=== PATIENT | female | born 1975 | race Caucasian/White ===

== ENCOUNTER 2019-08-16 23:27 | Outpatient (REF) | payer MEDICAID, SELFPAY ==
[2019-08-16 22:20] LABS: Anion Gap 8.4 mmol/L (3-11); BUN 21 mg/dL (7-18); CO2 29.6 mmol/L (21.0-32.0); CREATININE 1.04 mg/dL (0.55-1.02); Calcium 8.8 mg/dL (8.5-10.1); Chloride 101 mmol/L (98-107); Estimated GFR 57.57 (mL/min/1.73m2); Glucose 76 mg/dL (70-100); Sodium 139 mmol/L (136-145)
== END 2019-08-16 23:47 ==
LOC: NCHCN 23:27
PROVIDERS: PCP Nurse Practitioner Family; Visit Provider Nurse Practitioner Family
DX: I34.0 Nonrheumatic mitral (valve) insufficiency (principal); I50.21 Acute systolic (congestive) heart failure; R94.5 Abnormal results of liver function studies; J39.8 Other specified diseases of upper respiratory tract
CPT/HCPCS: 80048

== ENCOUNTER 2019-09-13 14:00 | Outpatient (REF) | payer MEDICAID, SELFPAY ==
[2019-09-13 22:40] LABS: Anion Gap 10.2 mmol/L (3-11); BUN 21 mg/dL (7-18); CO2 28.8 mmol/L (21.0-32.0); CREATININE 0.89 mg/dL (0.55-1.02); Calcium 8.9 mg/dL (8.5-10.1); Chloride 101 mmol/L (98-107); Glucose 96 mg/dL (70-100); Sodium 140 mmol/L (136-145)
== END 2019-09-13 14:20 ==
LOC: NCHCN 14:00
PROVIDERS: PCP Nurse Practitioner Family; Visit Provider Nurse Practitioner Family
DX: I44.7 Left bundle-branch block, unspecified (principal); R94.5 Abnormal results of liver function studies
CPT/HCPCS: 80048

== ENCOUNTER 2022-05-06 19:14 | Outpatient (REF) | payer MEDICAID, SELFPAY ==
[2022-05-06 21:44] LABS: ALT 25 U/L (14-59); AST 23 U/L (15-37); Albumin 4.1 g/dL (3.4-5.0); Alkaline Phosphatase 84 U/L (46-116); Anion Gap 10.9 mmol/L (3-11); BUN 13 mg/dL (7-18); Bilirubin, Total 1.5 mg/dL (0.2-1.0); CO2 28.1 mmol/L (21.0-32.0); CREATININE 0.9 mg/dL (0.55-1.02); Calcium 9.2 mg/dL (8.5-10.1); Chloride 100 mmol/L (98-107); Glucose 88 mg/dL (74-106); Potassium 4.1 mmol/L (3.5-5.1); Sodium 139 mmol/L (136-145); Total Protein 7.5 g/dL (6.4-8.2)
[2022-05-08 09:23] LABS: HBs Antibody, Quant <3.1 mIU/mL (See Note); Hepatitis B Surface Ab Negative (See Note)
[2022-05-08 09:32] LABS: Syphilis Serology (RPR) Negative (Negative)
[2022-05-08 09:48] LABS: Hepatitis B Surface Ag Negative (Negative)
[2022-05-08 10:06] LABS: Hep B Core Antibody Negative (Negative)
[2022-05-08 10:18] LABS: HIV-1/2 Ag & Ab Screen Negative (Negative)
[2022-05-08 10:36] LABS: Hepatitis C Ab w Rflx HCV PCR Negative (Negative)
[2022-05-08 14:45] LABS: Chlamydia Result Negative (Negative); GC Result Negative (Negative)
== END 2022-05-06 19:15 | disposition home or self-care (01) ==
LOC: NCHCN 19:14
PROVIDERS: PCP Nurse Practitioner Family; Visit Provider Nurse Practitioner Family
DX: Z20.5 Contact with and (suspected) exposure to viral hepatitis (principal); Z11.4 Encounter for screening for human immunodeficiency virus [HIV]; I10 Essential (primary) hypertension; Z11.3 Encounter for screening for infections with a predominantly sexual mode of transmission
CPT/HCPCS: 80053; 86704; 86706; 86803; 87340; 87389; 87491; 87591; 86592

== ENCOUNTER 2022-12-22 16:40 | Outpatient (REF) | payer MEDICAID, SELFPAY ==
--- NOTE | 2022-12-22 15:00 | PAPFT_PTH ---
PATIENT: Kristin Farooq [facility] U#:[id number] AGE/SX: 47/F ROOM: RE12/22/[address]: Loli Pena : 1975 BED: DIS: 12/22/2022 SPEC #: [id number] RECD: 12/23/22 18:08 STATUS: ROD REJonh #: [id number] AMBIKA: 12/22/22 15:[address]: Loli Pena DEPT: [facility] Cytology RECD BY: Josefina Ibarra Tissues: 1 - CX/ENDOCX FOR PAP SMEARS Procedures: PAP THIN PREP/UVM Screening HPV DNA PROBE Comments: [id number] (CHLAMYDIA/GC)
[2022-12-22 21:07] LABS: Calculated LDL 204 mg/dL (<100); Cholesterol 293 mg/dL (<200); HDL Cholesterol 67 mg/dL (40-60); Triglyceride 111 mg/dL (<150)
[2022-12-22 22:14] LABS: Hemoglobin A1C 5.2 % (<5.7)
[2022-12-24 10:33] LABS: Hepatitis A Antibody IgM Negative (Negative); Hepatitis B Core Antibody Negative (Negative); Hepatitis B surface Ag Negative (Negative); Hepatitis C Ab w Rflx HCV PCR Negative (Negative)
[2022-12-24 10:44] LABS: HIV-1/2 Ag & Ab Screen Negative (Negative)
[2022-12-24 14:34] LABS: Chlamydia Result Negative (Negative); GC Result Negative (Negative)
== END 2022-12-22 16:41 | disposition home or self-care (01) ==
LOC: NCHCN 16:40
PROVIDERS: PCP Nurse Practitioner Family; Visit Provider Nurse Practitioner Family
DX: R73.03 Prediabetes (principal); Z13.220 Encounter for screening for lipoid disorders; Z11.4 Encounter for screening for human immunodeficiency virus [HIV]; Z11.59 Encounter for screening for other viral diseases; Z12.4 Encounter for screening for malignant neoplasm of cervix; R87.610 Atypical squamous cells of undetermined significance on cytologic smear of cervix (ASC-US); Z11.51 Encounter for screening for human papillomavirus (HPV)
CPT/HCPCS: 80061; 86704; 86709; 86803; 87340; 87389; 87491; 87591; 88142; 83036; 87624

== ENCOUNTER 2023-03-06 21:23 | Outpatient (REF) | payer MEDICAID, SELFPAY ==
--- OUTSIDE RECORDS SUMMARY | 2023-03-06 21:27 | XMS_ITS | CCD ---
Author Name Unknown Address [address] [place] [address] [phone] Organization Unknown Address [address] [place] [address] [phone] Care Team Providers Care Mattress Stripper Name Role Phone AMANDA CARIAS Attending Physician [phone] AMANDA CARIAS Er Physician [phone] SHAHZAD Allen Registered Nurse [phone] Vital Signs Vital Sign Value Unit Date/Time Recent/Initial ? BMI (Body Mass Index) 29.43 kg/m^2 06/05/2022 12: 31 Initial VS Weight Measured 182.32 lbs 06/05/2022 12:31 Ini tial VS Height 66 in 06/05/2022 12:31 Initial VS BSA (Body Surface Area) 1.96 m^2 06/05/2022 1 2:31 Initial VS BP Systolic 119 mmHg 06/05/2022 12:31 Initial VS BP Diastolic 61 mmHg 06/05/2022 12:31 Initia l VS Respiratory Rate 19 bpm 06/05/2022 12:31 In itial VS Heart Rate 73 bpm 06/05/2022 12:31 Initial VS O2 % BldC Oximetry 100 % 06/05/2022 12:31 Initial VS Body Temperature 35 degrees 06/05/2022 12:31 In itial VS Body Temperature 36 degrees 06/05/2022 14:[address] Recent VS BP Systolic 94 mmHg 06/05/2022 15:30 Most Re cent VS BP Diastolic 75 mmHg 06/05/2022 15:30 Most R ecent VS Respiratory Rate 16 bpm 06/05/2022 15:[address] Recent VS Heart Rate 86 bpm 06/05/2022 15:30 Most Rec ent VS O2 % BldC Oximetry 100 % 06/05/2022 15:30 Most Recent VS Allergies Allergy Code Allergy Type Reaction Status DEPO-PROVERA CONTRACEPTIVE 20280705 Drug allergy Active LATEX 5412215 Allergy to substance HIVES; Redness Active Procedures Unknown or Not Available. History of Immunizations Unknown or Not Available. Problems Problem Code Start Date Resolved Date Status Chest pain 26402149 Active Chronic systolic CHF 841291582 Acti ve Nicotine dependence 63004871 Activ e Mitral regurgitation 44876414 Acti ve Liver failure 54385951 06/05/2022 Resolved Stroke 888935160 06/05/2022 Resolved CHF 32000584 06/05/2022 Resolved Pacemaker status 522311807 06/05/2022 Resolved Results ALCOHOL (ETHANOL)* - Collect Date/Time: 06/05/2022 11:55 Test Name Code Test Result Test Units Test Ref Rang e ALCOHOL (ETHANOL) 17881-9 <3 mg/dL BASIC METABOLIC PANEL (BMP) - Collect Date/Time: 06/05/2022 11:55 Test Name Code Test Result Test Units Test Ref Rang e GLUCOSE 2345-7 102 mg/dL L=70 H=116 BUN 3094-0 14 mg/dL L=6 H=25 CREATININE 2160-0 0.81 mg/dL L=0.51 H=0.95 SODIUM SERUM 2951-2 140 mmol/L L=136 H=145 POTASSIUM SERUM 2823-3 3.5 mmol/L L=3.4 H=5 .2 CHLORIDE SERUM 2075-0 104 mmol/L L=96 H=110 CARBON DIOXIDE (CO2) 2028-9 26 mmol/L L=22 H=34 ANION GAP 21921-1 10.2 mmol/L CALCIUM SERUM 81836-1 8.9 mg/dL L=8.2 H=10. 2 AGE 46 years eGFR (non-Afr.Amer.) 60381-5 76 mL/min eGFR (Afr-Filipino) 43607-8 92 mL/min GLUCOSE FINGER/HEEL CAPILLAR Y - Collect Date/Time: 06/05/2022 12:22 Test Name Code Test Result Test Units Test Ref Rang e GLUCOSE CAP 99 mg/dL L=70 H=116 TROPONIN HIGH SENSITIVITY* - Collect Date/Time: 06/05/2022 11:55 Test Name Code Test Result Test Units Test Ref Rang e TROPONIN HS 12.1 pg/mL L=0.0 H=60.4 Specimen seq. ADM. N/A CBC W/ DIFFERENTIAL* - Colle ct Date/Time: 06/05/2022 11:55 Test Name Code Test Result Test Units Test Ref Rang e WBC 6690-2 7.18 th/cmm L=5.00 H=10.00 NEUT % 63.8 % L=40.0 H=80.0 LYMPH % 26.7 % L=10.0 H=50.0 MONO % 24666-6 6.5 % L=2.0 H=12.0 EOS % 1.9 % L=0.0 H=8.0 BASO % 0.8 % L=0.0 H=3.0 IG % 2514-8 0.3 % L=0.0 H=1.1 NRBC % 84674-7 0.0 % L=0.0 H=0.0 NEUT abs count 751-8 4.6 th/cmm L=1.6 H=8. 4 LYMPH abs count 731-0 1.9 th/cmm L=1.5 H=4 .0 MONO abs count 742-7 0.5 th/cmm L=0.2 H=1. 0 EOS abs count 711-2 0.1 th/cmm L=0.0 H=0.5 BASO abs count 704-7 0.1 th/cmm L=0.0 H=0. 2 IG abs count 31152-2 0.0 th/cmm L=0.0 H=0.1 NRBC abs count 82738-3 0.0 mil/cmm L=0.0 H=0. 0 RBC 789-8 4.84 mil/cmm L=3.90 H=5.40 HEMOGLOBIN 718-7 14.0 gm/dL L=12.0 H=16.0 HEMATOCRIT 4544-3 42 % L=37 H=47 MCV 787-2 87 fL L=82 H=92 MCH 785-6 28.9 pg L=27.0 H=31.0 MCHC 786-4 33.3 % L=32.0 H=36.0 RDW-SD 788-0 48.5 fL L=39.0 H=49.0 PLATELET COUNT 777-3 230 th/cmm L=150 H=45 0 PT PROTHROMBIN TIME* - Colle ct Date/Time: 06/05/2022 11:55 Test Name Code Test Result Test Units Test Ref Rang e PROTIME 5902-2 9.9 seconds L=9.3 H=11.4 INR 80422-0 0.99 L=2.00 H=3.00 PTT PARTIAL THROMBOPLASTIN T QUIQUE* - Collect Date/Time: 06/05/2022 11:55 Test Name Code Test Result Test Units Test Ref Rang e PTT 46149-7 22 seconds L=24 H=32 DRUG SCN 13 PANEL (MEDTOX)* - Collect Date/Time: 06/05/2022 13:08 Test Name Code Test Result Test Units Test Ref Rang e CANNABINOIDS 48236-9 POSITIVE N/A Cutoff = 50 ng/mL PHENCYCLIDINE 88337-1 NEGATIVE N/A Cutoff = 25 ng/mL COCAINE 26940-7 NEGATIVE N/A Cutoff = 150 n g/mL METHAMPHETAMINES 74990-7 NEGATIVE N/A Cutoff = 500 ng/mL OPIATES 30516-0 NEGATIVE N/A Cutoff = 100 n g/mL AMPHETAMINES 22085-3 NEGATIVE N/A Cutoff = 500 ng/mL BENZODIAZEPINES 22849-5 NEGATIVE N/A Cutoff = 150 ng/mL TRICYCLIC ANTIDEP 3533-7 NEGATIVE N/A Cutoff = 300 ng/mL METHADONE 85796-0 NEGATIVE N/A Cutoff = 200 n g/mL BARBITURATES 13620-4 NEGATIVE N/A Cutoff = 200 ng/mL OXYCODONE 05626-0 NEGATIVE N/A Cutoff = 100 n g/mL PROPOXYPHENE 42749-1 NEGATIVE N/A Cutoff = 300 ng/mL BUPRENORPHINE 3414-0 NEGATIVE N/A Cutoff = 10 mg/mL URINALYSIS WITH REFLEX CULT IF POSITIVE* - Collect Date/Time: 06/05/2022 13:08 Test Name Code Test Result Test Units Test Ref Rang e COLLECTION MODE: CLEAN CATCH N/A Color YELLOW N/A yellow Appearance CLEAR N/A clear Glucose urine NEGATIVE N/A negative mg /dl Bilirubin NEGATIVE N/A negative Ketones NEGATIVE N/A negative mg/dl Spec gravity 1.010 N/A 1.003 - 1.03 0 pH urine 7.5 N/A 5.0 - 7.0 Protein NEGATIVE N/A negative mg/dl Urobilinogen 0.2 N/A <or= 1 EU/dl Nitrite. NEGATIVE N/A negative Blood NEGATIVE N/A negative Leukocytes. TRACE N/A negative MICROSCOPIC INDICATED N/A WBCs. 0-5 N/A 0-5 / hpf RBCs none N/A 0-5 / hpf Epith cells 5-10 N/A 0-5 / hpf Cell types squamous N/A Crystals none N/A none Bacteria moderate N/A none Mucus none N/A none Casts none N/A none /lpf TEST (URINE) QUALI TATIVE - Collect Date/Time: 06/05/2022 13:08 Test Name Code Test Result Test Units Test Ref Rang e TEST 6-3 NEGATIVE N/A Active Medications Medication Code Dose Units Frequency Route Modificatio n Start Date/Time Aspirin 81MG Oral Tablet, Enteric Coated 212613 81 MILLIGRAMS DAILY ORAL 08/01 09:25 Prescription Detail TAKE 81 MILLIGRAMS ORAL DAILY Torsemide 20MG Oral Tablet 660947 20 MILLIGRAMS DAILY ORAL 019 09:25 Prescription Detail TAKE 20 MILLIGRAMS ORAL DAILY Medications Administered During Visit Unknown or Not Available. Encounters Encounter Diagnosis Diagnosis Code Start Date Weakness R531 06/05/2022 Social History Smoking Status Code Start Date End Date Current every day smoker [id number] Patient Decision Aids Unknown or Not Available. Discharge Instructions You were admitted to [facility] on 06/05/2022 11:42 with a principal diagnosis of Weakness You had the following tests done:DRUG SCN 13 PANEL (MEDTOX)* TEST (URINE) QUALITATIVEURINALYSIS WITH REFLEX CULT IF POSITIVE*GLUCOSE FINGER/HEEL CAPILLARYALCOHOL (ETHANOL)*BASIC METABOLIC PANEL (BMP)CBC W/ DIFFERENTIAL*PT PROTHROMBIN TIME*PTT PARTIAL THROMBOPLASTIN TIME*TROPONIN HIGH SENSITIVITY* You were discharged from [facility] on 06/05/2022 15:33 Should you have any questions prior to discharge, please contact a member of your healthcare team. If you have left the hospital and have any questions, please contact your primary care physician. Chief Complaint and Reason For Visit Chief Complaint Date of Onset STROKE Function Status Unknown or Not Available. Plan of Care Unknown or Not Available. Referral/Transition of Care Unknown or Not Available.
--- OUTSIDE RECORDS SUMMARY | 2023-03-06 21:27 | XMS_ITS | CCD ---
Author Name Unknown Address [address] [place] [address] [phone] Organization Unknown Address [address] [place] [address] [phone] Care Team Providers Care Stripping Cutter And Winder Name Role Phone AMANDA CARIAS Attending Physician [phone] AMANDA CARIAS Er Physician [phone] JACKELINE Allen Registered Nurse [phone] Vital Signs Vital Sign Value Unit Date/Time Recent/Initial ? BMI (Body Mass Index) 26.96 kg/m^2 12/05/2022 11: 09 Initial VS Weight Measured 162 lbs 12/05/2022 11:09 Ini tial VS Height 65 in 12/05/2022 11:09 Initial VS BSA (Body Surface Area) 1.84 m^2 12/05/2022 1 1:09 Initial VS BP Systolic 121 mmHg 12/05/2022 11:09 Initial VS BP Diastolic 81 mmHg 12/05/2022 11:09 Initia l VS Respiratory Rate 18 bpm 12/05/2022 11:09 In itial VS Heart Rate 79 bpm 12/05/2022 11:09 Initial VS O2 % BldC Oximetry 98 % 12/05/2022 11:09 Initial VS Body Temperature 35.9 degrees 12/05/2022 11:09 In itial VS BP Systolic 107 mmHg 12/05/2022 16:30 Most Re cent VS BP Diastolic 68 mmHg 12/05/2022 16:30 Most R ecent VS Respiratory Rate 18 bpm 12/05/2022 16:[address] Recent VS Heart Rate 72 bpm 12/05/2022 16:30 Most Rec ent VS O2 % BldC Oximetry 98 % 12/05/2022 16:30 Most Recent VS Body Temperature 36.8 degrees 12/05/2022 16:[address] Recent VS Allergies Allergy Code Allergy Type Reaction Status DEPO-PROVERA CONTRACEPTIVE 20280705 Drug allergy Active JARDIANCE 0617415 Drug allergy DIZZINESS Active LATEX 1603813 Allergy to substance HIVES; Redness Active Procedures Unknown or Not Available. History of Immunizations Unknown or Not Available. Problems Problem Code Start Date Resolved Date Status Chest pain 72426311 Active Chronic systolic CHF 521990573 Acti ve Nicotine dependence 60322260 Activ e Mitral regurgitation 57425239 Acti ve Results BNP (PRO-B NATRIURETIC PEPTI DE) - Collect Date/Time: 12/05/2022 11:30 Test Name Code Test Result Test Units Test Ref Rang e NT-proBNP 48301-9 522.0 pg/mL L=0.0 H=125 COMPREHENSIVE METABOLIC PANE L (CMP) - Collect Date/Time: 12/05/2022 11:30 Test Name Code Test Result Test Units Test Ref Rang e GLUCOSE 2345-7 89 mg/dL L=70 H=116 BUN 3094-0 15 mg/dL L=6 H=25 CREATININE 2160-0 0.71 mg/dL L=0.51 H=0.95 SODIUM SERUM 2951-2 136 mmol/L L=136 H=145 POTASSIUM SERUM 2823-3 3.9 mmol/L L=3.4 H=5 .2 CHLORIDE SERUM 2075-0 100 mmol/L L=96 H=110 CARBON DIOXIDE (CO2) 2028-9 25 mmol/L L=22 H=34 ANION GAP 59033-9 10.7 mmol/L CALCIUM SERUM 39592-2 8.9 mg/dL L=8.2 H=10. 2 BILIRUBIN TOTAL 1975-2 1.0 mg/dL L=0.0 H=1 .3 ALK. PHOS. 6768-6 75 U/L L=46 H=116 SGOT (AST) 1920-8 17 U/L L=15 H=37 SGPT (ALT) 1742-6 25 U/L L=12 H=78 TOTAL PROTEIN 2885-2 7.7 gm/dL L=6.0 H=8.0 ALBUMIN 1751-7 3.8 gm/dL L=3.4 H=5.0 AGE 47 years eGFR (non-Afr.Amer.) 16960-4 88 mL/min eGFR (Afr-[place] Citizen) 96804-2 107 mL/min TROPONIN HIGH SENSITIVITY* - Collect Date/Time: 12/05/2022 12:55 Test Name Code Test Result Test Units Test Ref Rang e TROPONIN HS 5.8 pg/mL L=0.0 H=60.4 Specimen seq. 1 HOUR N/A TROPONIN HIGH SENSITIVITY* - Collect Date/Time: 12/05/2022 11:30 Test Name Code Test Result Test Units Test Ref Rang e TROPONIN HS 6.2 pg/mL L=0.0 H=60.4 Specimen seq. RANDOM N/A CBC W/ DIFFERENTIAL* - Colle ct Date/Time: 12/05/2022 11:30 Test Name Code Test Result Test Units Test Ref Rang e WBC 6690-2 6.06 th/cmm L=5.00 H=10.00 NEUT % 58.8 % L=40.0 H=80.0 LYMPH % 28.9 % L=10.0 H=50.0 MONO % 04222-1 8.1 % L=2.0 H=12.0 EOS % 3.0 % L=0.0 H=8.0 BASO % 1.0 % L=0.0 H=3.0 IG % 2514-8 0.2 % L=0.0 H=1.1 NRBC % 24429-8 0.0 % L=0.0 H=0.0 NEUT abs count 751-8 3.6 th/cmm L=1.6 H=8. 4 LYMPH abs count 731-0 1.8 th/cmm L=1.5 H=4 .0 MONO abs count 742-7 0.5 th/cmm L=0.2 H=1. 0 EOS abs count 711-2 0.2 th/cmm L=0.0 H=0.5 BASO abs count 704-7 0.1 th/cmm L=0.0 H=0. 2 IG abs count 39221-1 0.0 th/cmm L=0.0 H=0.1 NRBC abs count 59013-5 0.0 mil/cmm L=0.0 H=0. 0 RBC 789-8 4.54 mil/cmm L=3.90 H=5.40 HEMOGLOBIN 718-7 13.9 gm/dL L=12.0 H=16.0 HEMATOCRIT 4544-3 41 % L=37 H=47 MCV 787-2 91 fL L=82 H=92 MCH 785-6 30.6 pg L=27.0 H=31.0 MCHC 786-4 33.7 % L=32.0 H=36.0 RDW-SD 788-0 43.8 fL L=39.0 H=49.0 PLATELET COUNT 777-3 268 th/cmm L=150 H=45 0 PT PROTHROMBIN TIME* - Colle ct Date/Time: 12/05/2022 11:30 Test Name Code Test Result Test Units Test Ref Rang e PROTIME 5902-2 9.6 seconds L=9.3 H=11.4 INR 61394-2 0.96 L=2.00 H=3.00 PTT PARTIAL THROMBOPLASTIN T QUIQUE* - Collect Date/Time: 12/05/2022 11:30 Test Name Code Test Result Test Units Test Ref Rang e PTT 72362-0 21.9 seconds L=24.5 H=32.8 Active Medications Unknown or Not Available. Medications Administered During Visit Medication Dose Units Frequency Route Date/Time of Last Dose ASPIRIN TABLET CHEWABLE: 81MG 324 MG X1 CHEW 12/05/2022 11:41 ACETAMINOPHEN TABLET: 325MG 975 MG X1 PO 12/05/2022 15:37 Encounters Encounter Diagnosis Diagnosis Code Start Date Other chest pain R0789 12/05/2022 Social History Smoking Status Code Start Date End Date Current every day smoker 413162697 Patient Decision Aids Unknown or Not Available. Discharge Instructions You were admitted to [facility] on 12/05/2022 10:57 with a principal diagnosis of Other chest pain You had the following tests done:TROPONIN HIGH SENSITIVITY*BNP (PRO-B NATRIURETIC PEPTIDE)CBC W/ DIFFERENTIAL*COMPREHENSIVE METABOLIC PANEL (CMP)PT PROTHROMBIN TIME*PTT PARTIAL THROMBOPLASTIN TIME*TROPONIN HIGH SENSITIVITY* You were discharged from [facility] on 12/05/2022 17:11 Should you have any questions prior to discharge, please contact a member of your healthcare team. If you have left the hospital and have any questions, please contact your primary care physician. Chief Complaint and Reason For Visit Chief Complaint Date of Onset CHEST TO BACK PAIN Function Status Unknown or Not Available. Plan of Care Unknown or Not Available. Referral/Transition of Care Unknown or Not Available.
--- OUTSIDE RECORDS SUMMARY | 2023-03-06 21:27 | XMS_ITS | CCD ---
Author Name Unknown Address [address] [place] [address] [phone] Organization Unknown Address [address] [place] [address] [phone] Care Team Providers Care Scleroscope Tester Name Role Phone JORDAN CABALLERO Attending Physician [phone] JORDAN CABALLERO Rounding (Secondary) Physician [phone] Vital Signs Unknown or Not Available. Allergies Allergy Code Allergy Type Reaction Status DEPO-PROVERA CONTRACEPTIVE 20280705 Drug allergy Active LATEX 2104814 Allergy to substance HIVES; Redness Active Procedures Unknown or Not Available. History of Immunizations Unknown or Not Available. Problems Problem Code Start Date Resolved Date Status Chest pain 41352763 Active Chronic systolic CHF 911873399 Acti ve Nicotine dependence 18802849 Activ e Mitral regurgitation 63319204 Acti ve Results Unknown or Not Available. Active Medications Medication Code Dose Units Frequency Route Modificatio n Start Date/Time Aspirin 81MG Oral Tablet, Enteric Coated 056653 81 MILLIGRAMS DAILY ORAL 08/01 09:25 Prescription Detail TAKE 81 MILLIGRAMS ORAL DAILY Torsemide 20MG Oral Tablet 970435 20 MILLIGRAMS DAILY ORAL 019 09:25 Prescription Detail TAKE 20 MILLIGRAMS ORAL DAILY Medications Administered During Visit Unknown or Not Available. Encounters Encounter Diagnosis Diagnosis Code Start Date Other cardiomyopathies I428 Social History Smoking Status Code Start Date End Date Current every day smoker 903593816 Patient Decision Aids Unknown or Not Available. Discharge Instructions You were admitted to [facility] on 06/12/2022 10:35 with a principal diagnosis of Other cardiomyopathies You were discharged from [facility] on 06/12/2022 00:00 Should you have any questions prior to discharge, please contact a member of your healthcare team. If you have left the hospital and have any questions, please contact your primary care physician. Chief Complaint and Reason For Visit Unknown or Not Available. Function Status Unknown or Not Available. Plan of Care Unknown or Not Available. Referral/Transition of Care Unknown or Not Available.
--- OUTSIDE RECORDS SUMMARY | 2023-03-06 21:27 | XMS_ITS | CCD ---
Author Name Unknown Address [address] [place] [address] [phone] Organization Unknown Address [address] [place] [address] [phone] Care Team Providers Care Field Artillery Senior Sergeant Name Role Phone JORDAN CABALLERO Attending Physician [phone] JORDAN CABALLERO Rounding (Secondary) Physician [phone] Vital Signs Unknown or Not Available. Allergies Allergy Code Allergy Type Reaction Status DEPO-PROVERA CONTRACEPTIVE 20280705 Drug allergy Active JARDIANCE 2611616 Drug allergy DIZZINESS Active LATEX 4714644 Allergy to substance HIVES; Redness Active Procedures Unknown or Not Available. History of Immunizations Unknown or Not Available. Problems Problem Code Start Date Resolved Date Status Chest pain 41257364 Active Chronic systolic CHF 306952873 Acti ve Nicotine dependence 14069269 Activ e Mitral regurgitation 59461758 Acti ve Results Unknown or Not Available. Active Medications Medication Code Dose Units Frequency Route Modificatio n Start Date/Time Aspirin 81MG Oral Tablet, Enteric Coated 386645 81 MILLIGRAMS DAILY ORAL 08/01 09:25 Prescription Detail TAKE 81 MILLIGRAMS ORAL DAILY Torsemide 20MG Oral Tablet 812407 20 MILLIGRAMS DAILY ORAL 019 09:25 Prescription Detail TAKE 20 MILLIGRAMS ORAL DAILY Medications Administered During Visit Unknown or Not Available. Encounters Encounter Diagnosis Diagnosis Code Start Date Hypertensive heart disease with heart failure I1 10 12/23/2022 Social History Smoking Status Code Start Date End Date Current every day smoker 734955331 Patient Decision Aids Unknown or Not Available. Discharge Instructions You were admitted to [facility] on 12/23/2022 13:34 with a principal diagnosis of Hypertensive heart disease with heart failure You were discharged from [facility] on 12/23/2022 00:00 Should you have any questions prior [...]
--- OUTSIDE RECORDS SUMMARY | 2023-03-06 21:28 | XMS_ITS | CCD ---
Author Name Unknown Address [address] [place] [address] [phone] Organization Unknown Address [address] [place] [address] [phone] Care Team Providers Care Fence Maker Name Role Phone JORDAN CABALLERO Attending Physician [phone] JORDAN CABALLERO Rounding (Secondary) Physician [phone] Vital Signs Unknown or Not Available. Allergies Allergy Code Allergy Type Reaction Status DEPO-PROVERA CONTRACEPTIVE 20280705 Drug allergy Active JARDIANCE 3181797 Drug allergy DIZZINESS Active LATEX 3293286 Allergy to substance HIVES; Redness Active Procedures Unknown or Not Available. History of Immunizations Unknown or Not Available. Problems Problem Code Start Date Resolved Date Status Chest pain 65239378 Active Chronic systolic CHF 754776099 Acti ve Nicotine dependence 55151601 Activ e Mitral regurgitation 31885145 Acti ve Results Unknown or Not Available. Active Medications Medication Code Dose Units Frequency Route Modificatio n Start Date/Time Aspirin 81MG Oral Tablet, Enteric Coated 365158 81 MILLIGRAMS DAILY ORAL 08/01 09:25 Prescription Detail TAKE 81 MILLIGRAMS ORAL DAILY Torsemide 20MG Oral Tablet 796079 20 MILLIGRAMS DAILY ORAL 019 09:25 Prescription Detail TAKE 20 MILLIGRAMS ORAL DAILY Medications Administered During Visit Unknown or Not Available. Encounters Encounter Diagnosis Diagnosis Code Start Date Hypertensive heart disease with heart failure I1 08/12/2022 Social History Smoking Status Code Start Date End Date Current every day smoker 804024897 Patient Decision Aids Unknown or Not Available. Discharge Instructions You were admitted to [facility] on 08/12/2022 16:08 with a principal diagnosis of Hypertensive heart disease with heart failure You were discharged from [facility] on 08/12/2022 00:00 Should you have any questions prior [...]
--- OUTSIDE RECORDS SUMMARY | 2023-03-06 21:28 | XMS_ITS | CCD ---
Author Name Unknown Address [address] [place] [address] [phone] Organization Unknown Address [address] [place] [address] [phone] Care Team Providers Care Clock Maker Name Role Phone MADISON, JEREMIAH Attending Physician [phone] Vital Signs Unknown or Not Available. Allergies Allergy Code Allergy Type Reaction Status DEPO-PROVERA CONTRACEPTIVE 20280705 Drug allergy Active JARDIANCE 2010587 Drug allergy DIZZINESS Active LATEX 0868133 Allergy to substance HIVES; Redness Active Procedures Unknown or Not Available. History of Immunizations Unknown or Not Available. Problems Problem Code Start Date Resolved Date Status Chest pain 19213681 Active Chronic systolic CHF 666646220 Acti ve Nicotine dependence 22621669 Activ e Mitral regurgitation 82282239 Acti ve Results Unknown or Not Available. Active Medications Medication Code Dose Units Frequency Route Modificatio n Start Date/Time Aspirin 81MG Oral Tablet, Enteric Coated 340852 81 MILLIGRAMS DAILY ORAL 08/01 09:25 Prescription Detail TAKE 81 MILLIGRAMS ORAL DAILY Torsemide 20MG Oral Tablet 197574 20 MILLIGRAMS DAILY ORAL 019 09:25 Prescription Detail TAKE 20 MILLIGRAMS ORAL DAILY Medications Administered During Visit Unknown or Not Available. Encounters Encounter Diagnosis Diagnosis Code Start Date Other low back pain M5459 10/15/2022 Social History Smoking Status Code Start Date End Date Current every day smoker 991605722 Patient Decision Aids Unknown or Not Available. Discharge Instructions You were admitted to on 10/15/2022 10:03 with a principal diagnosis of Other low back pain You were discharged from on 10/15/2022 10:26 Should you have any questions prior to [...]
--- OUTSIDE RECORDS SUMMARY | 2023-03-06 21:28 | XMS_ITS | CCD ---
Author Name Unknown Address [address] [place] [address] [phone] Organization Unknown Address [address] [place] [address] [phone] Care Team Providers Care Director Cardiac Name Role Phone JORDAN CABALLERO Attending Physician [phone] JORDAN CABALLERO Rounding (Secondary) Physician [phone] Vital Signs Unknown or Not Available. Allergies Allergy Code Allergy Type Reaction Status DEPO-PROVERA CONTRACEPTIVE 20280705 Drug allergy Active JARDIANCE 9129250 Drug allergy DIZZINESS Active LATEX 6333174 Allergy to substance HIVES; Redness Active Procedures Unknown or Not Available. History of Immunizations Unknown or Not Available. Problems Problem Code Start Date Resolved Date Status Chest pain 48481740 Active Chronic systolic CHF 623464361 Acti ve Nicotine dependence 27736735 Activ e Mitral regurgitation 40824033 Acti ve Results Unknown or Not Available. Active Medications Medication Code Dose Units Frequency Route Modificatio n Start Date/Time Aspirin 81MG Oral Tablet, Enteric Coated 348470 81 MILLIGRAMS DAILY ORAL 08/01 09:25 Prescription Detail TAKE 81 MILLIGRAMS ORAL DAILY Torsemide 20MG Oral Tablet 019932 20 MILLIGRAMS DAILY ORAL 019 09:25 Prescription Detail TAKE 20 MILLIGRAMS ORAL DAILY Medications Administered During Visit Unknown or Not Available. Encounters Encounter Diagnosis Diagnosis Code Start Date Hypertensive heart disease with congestive heart failure 8170289 09/16/2022 Social History Smoking Status Code Start Date End Date Current every day smoker 018878342 Patient Decision Aids Unknown or Not Available. Discharge Instructions You were admitted to [facility] on 09/16/2022 10:17 with a principal diagnosis of Hypertensive heart disease with heart failure You were discharged from [facility] on 09/16/2022 00:00 Should you have any questions prior [...]
--- OUTSIDE RECORDS SUMMARY | 2023-03-06 21:28 | XMS_ITS | CCD ---
Author Name Unknown Address [address] [place] [address] [phone] Organization Unknown Address [address] [place] [address] [phone] Care Team Providers Care Electronic Gluing Machine Operator Name Role Phone CABALLERO JORDAN Attending Physician [phone] Vital Signs Unknown or Not Available. Allergies Allergy Code Allergy Type Reaction Status DEPO-PROVERA CONTRACEPTIVE 20280705 Drug allergy Active JARDIANCE 0297211 Drug allergy DIZZINESS Active LATEX 9563643 Allergy to substance HIVES; Redness Active Procedures Unknown or Not Available. History of Immunizations Unknown or Not Available. Problems Problem Code Start Date Resolved Date Status Chest pain 46074363 Active Chronic systolic CHF 773774958 Acti ve Nicotine dependence 73481275 Activ e Mitral regurgitation 01998822 Acti ve Results Unknown or Not Available. Active Medications Medication Code Dose Units Frequency Route Modificatio n Start Date/Time Aspirin 81MG Oral Tablet, Enteric Coated [id number] 81 MILLIGRAMS DAILY ORAL 08/01 09:25 Prescription Detail TAKE 81 MILLIGRAMS ORAL DAILY Torsemide 20MG Oral Tablet 429510 20 MILLIGRAMS DAILY ORAL 019 09:25 Prescription Detail TAKE 20 MILLIGRAMS ORAL DAILY Medications Administered During Visit Unknown or Not Available. Encounters Encounter Diagnosis Diagnosis Code Start Date Heart failure, unspecified I509 07/04 Social History Smoking Status Code Start Date End Date Current every day smoker [id number] Patient Decision Aids Unknown or Not Available. Discharge Instructions You were admitted to [facility] on 07/04/2022 09:29 with a principal diagnosis of Heart failure, unspecified You were discharged from [facility] on 07/04/2022 11:48 Should you have any questions prior to [...]
--- OUTSIDE RECORDS SUMMARY | 2023-03-06 21:28 | XMS_ITS | CCD ---
Author Name Unknown Address [address] [place] [address] [phone] Organization Unknown Address [address] [place] [address] [phone] Care Team Providers Care Retort Fireman Name Role Phone AMANDA CARIAS Attending Physician [phone] AMANDA CARAIS Er Physician 2 [phone] SUHAIL Meyers Registered Nurse [phone] Vital Signs Vital Sign Value Unit Date/Time Recent/Initial ? BMI (Body Mass Index) 22.6 kg/m^2 09/26/2022 11: 09 Initial VS Weight Measured 140 lbs 09/26/2022 11:09 Ini tial VS Height 66 in 09/26/2022 11:09 Initial VS BSA (Body Surface Area) 1.72 m^2 09/26/2022 1 1:09 Initial VS BP Systolic 113 mmHg 09/26/2022 11:09 Initial VS BP Diastolic 77 mmHg 09/26/2022 11:09 Initia l VS Respiratory Rate 16 bpm 09/26/2022 11:09 In itial VS Heart Rate 66 bpm 09/26/2022 11:09 Initial VS O2 % BldC Oximetry 98 % 09/26/2022 11:09 Initial VS Body Temperature 2.6 degrees 09/26/2022 11:09 In itial VS Allergies Allergy Code Allergy Type Reaction Status DEPO-PROVERA CONTRACEPTIVE 20280705 Drug allergy Active JARDIANCE 9833401 Drug allergy DIZZINESS Active LATEX 1886676 Allergy to substance HIVES; Redness Active Procedures Unknown or Not Available. History of Immunizations Unknown or Not Available. Problems Problem Code Start Date Resolved Date Status Chest pain 55366963 Active Chronic systolic CHF 151634236 Acti ve Nicotine dependence 50170690 Activ e Mitral regurgitation 10225365 Acti ve Results BASIC METABOLIC PANEL (BMP) - Collect Date/Time: 09/26/2022 10:00 Test Name Code Test Result Test Units Test Ref Rang e GLUCOSE 2345-7 103 mg/dL L=70 H=116 BUN 3094-0 18 mg/dL L=6 H=25 CREATININE 2160-0 0.70 mg/dL L=0.51 H=0.95 SODIUM SERUM 2951-2 136 mmol/L L=136 H=145 POTASSIUM SERUM 2823-3 3.9 mmol/L L=3.4 H=5 .2 CHLORIDE SERUM 2075-0 101 mmol/L L=96 H=110 CARBON DIOXIDE (CO2) 2028-9 24 mmol/L L=22 H=34 ANION GAP 03034-9 10.9 mmol/L CALCIUM SERUM 15159-9 8.9 mg/dL L=8.2 H=10. 2 AGE 47 years eGFR (non-Afr.Amer.) 25738-4 90 mL/min eGFR (Afr-Greenlandic) 98334-5 109 mL/min MAGNESIUM SERUM* - Collect D ate/Time: 09/26/2022 10:00 Test Name Code Test Result Test Units Test Ref Rang e MAGNESIUM 67780-9 1.9 mg/dL L=1.8 H=2.4 CBC W/ DIFFERENTIAL* - Colle ct Date/Time: 09/26/2022 10:00 Test Name Code Test Result Test Units Test Ref Rang e WBC 6690-2 7.08 th/cmm L=5.00 H=10.00 NEUT % 65.6 % L=40.0 H=80.0 LYMPH % 22.9 % L=10.0 H=50.0 MONO % 64100-9 8.2 % L=2.0 H=12.0 EOS % 2.5 % L=0.0 H=8.0 BASO % 0.7 % L=0.0 H=3.0 IG % 2514-8 0.1 % L=0.0 H=1.1 NRBC % 17487-3 0.0 % L=0.0 H=0.0 NEUT abs count 751-8 4.6 th/cmm L=1.6 H=8. 4 LYMPH abs count 731-0 1.6 th/cmm L=1.5 H=4 .0 MONO abs count 742-7 0.6 th/cmm L=0.2 H=1. 0 EOS abs count 711-2 0.2 th/cmm L=0.0 H=0.5 BASO abs count 704-7 0.1 th/cmm L=0.0 H=0. 2 IG abs count 15030-6 0.0 th/cmm L=0.0 H=0.1 NRBC abs count 53147-0 0.0 mil/cmm L=0.0 H=0. 0 RBC 789-8 4.82 mil/cmm L=3.90 H=5.40 HEMOGLOBIN 718-7 14.9 gm/dL L=12.0 H=16.0 HEMATOCRIT 4544-3 43 % L=37 H=47 MCV 787-2 89 fL L=82 H=92 MCH 785-6 30.9 pg L=27.0 H=31.0 MCHC 786-4 34.8 % L=32.0 H=36.0 RDW-SD 788-0 41.2 fL L=39.0 H=49.0 PLATELET COUNT 777-3 218 th/cmm L=150 H=45 0 Active Medications Medication Code Dose Units Frequency Route Modificatio n Start Date/Time Aspirin 81MG Oral Tablet, Enteric Coated [id number] 81 MILLIGRAMS DAILY ORAL 08/01 09:25 Prescription Detail TAKE 81 MILLIGRAMS ORAL DAILY Torsemide 20MG Oral Tablet 422340 20 MILLIGRAMS DAILY ORAL 019 09:25 Prescription Detail TAKE 20 MILLIGRAMS ORAL DAILY Medications Administered During Visit Unknown or Not Available. Encounters Encounter Diagnosis Diagnosis Code Start Date Bradycardia, unspecified R001 022 Social History Smoking Status Code Start Date End Date Current every day smoker [id number] Patient Decision Aids Unknown or Not Available. Discharge Instructions You were admitted to [facility] on 09/26/2022 10:43 with a principal diagnosis of Bradycardia, unspecified You had the following tests done:BASIC METABOLIC PANEL (BMP)CBC W/ DIFFERENTIAL*MAGNESIUM SERUM* You were discharged from [facility] on 09/26/2022 14:53 Should you have any questions prior to discharge, please contact a member of your healthcare team. If you have left the hospital and have any questions, please contact your primary care physician. Chief Complaint and Reason For Visit Chief Complaint Date of Onset LOW HEART RATE 09/26/2022 Function Status Unknown or Not Available. Plan of Care Unknown or Not Available. Referral/Transition of Care Unknown or Not Available.
--- OUTSIDE RECORDS SUMMARY | 2023-03-06 21:28 | XMS_ITS | CCD ---
Author Name Unknown Address [address] [place] [address] [phone] Organization Unknown Address [address] [place] [address] [phone] Care Team Providers Care Senior Recruitment Consultant Name Role Phone AMANDA UGALDE Attending Physician [phone] AMANDA UGALDE Rounding (Secondary) Physician [phone] Vital Signs Unknown or Not Available. Allergies Allergy Code Allergy Type Reaction Status DEPO-PROVERA CONTRACEPTIVE 20280705 Drug allergy Active LATEX 8141341 Allergy to substance HIVES; Redness Active Procedures Unknown or Not Available. History of Immunizations Unknown or Not Available. Problems Problem Code Start Date Resolved Date Status Chest pain 11794257 Active Chronic systolic CHF 437981138 Acti ve Nicotine dependence 49872880 Activ e Mitral regurgitation 34795929 Acti ve Results Unknown or Not Available. Active Medications Medication Code Dose Units Frequency Route Modificatio n Start Date/Time Aspirin 81MG Oral Tablet, Enteric Coated 967495 81 MILLIGRAMS DAILY ORAL 08/01 09:25 Prescription Detail TAKE 81 MILLIGRAMS ORAL DAILY Torsemide 20MG Oral Tablet 482394 20 MILLIGRAMS DAILY ORAL 019 09:25 Prescription Detail TAKE 20 MILLIGRAMS ORAL DAILY Medications Administered During Visit Unknown or Not Available. Encounters Encounter Diagnosis Diagnosis Code Start Date Encounter for screening for cardiovascular disor ders Z136 06/09/2022 Social History Smoking Status Code Start Date End Date Current every day smoker 885118972 Patient Decision Aids Unknown or Not Available. Discharge Instructions You were admitted to [facility] on 06/09/2022 07:59 with a principal diagnosis of Encounter for screening for cardiovascular disorders You were discharged from [facility] on 06/09/2022 00:00 Should you have any questions prior [...]
[2023-03-06 21:48] LABS: Calculated LDL 88 mg/dL (<100); Cholesterol 162 mg/dL (<200); HDL Cholesterol 58 mg/dL (40-60); Triglyceride 80 mg/dL (<150)
== END 2023-03-06 21:24 | disposition home or self-care (01) ==
LOC: NCHCN 21:23
PROVIDERS: PCP Nurse Practitioner Family; Visit Provider Nurse Practitioner Family
DX: Z13.220 Encounter for screening for lipoid disorders (principal); Z00.00 Encounter for general adult medical examination without abnormal findings
CPT/HCPCS: 80061

== ENCOUNTER 2023-07-14 12:42 | Outpatient (REF) | payer MEDICAID, SELFPAY ==
--- NOTE | 2023-07-14 11:00 | ENDOMET_PTH ---
PATIENT: Kristin Farooq LOC: [facility] U#:[id number] AGE/SX: 47/F ROOM: RE07/14/[address]: Loli Pena : 1975 BED: DIS: 07/14/2023 SPEC #: [id number] RECD: 07/15/23 09:34 STATUS: ROD REJonh #: [id number] AMBIKA: 07/14/23 11:[address]: Loli Pena DEPT: Surgical Specimen RECD BY: Margret Kay Tissues: 1 - ENDOMETRIUM BX/LISAETTE Procedures: GROSS AND MICRO LEVEL 4 Comments: [id number]
[2023-07-15 13:34] LABS: Chlamydia Result Negative (Negative); GC Result Negative (Negative)
== END 2023-07-14 12:43 | disposition home or self-care (01) ==
LOC: NCHCN 12:42
PROVIDERS: PCP Nurse Practitioner Family; Visit Provider Nurse Practitioner Family
DX: Z11.3 Encounter for screening for infections with a predominantly sexual mode of transmission (principal); N93.8 Other specified abnormal uterine and vaginal bleeding; N85.8 Other specified noninflammatory disorders of uterus
CPT/HCPCS: 87491; 87591; 88305